=== PATIENT | male | born 1975 | race African-American/Black ===

== ENCOUNTER 2020-05-25 06:50 | Day surgery (SDC) | payer OTHER ==
[2020-05-19 11:09] LABS: BASOPHILS % (AUTO) 0.8 % (0.0-5.0); EOSINOPHILS % (AUTO) 1.9 % (0.0-8.0); HEMATOCRIT 41.4 % (42-54); LYMPHOCYTES % (AUTO) 35.2 % (21.0-51.0); MEAN CORPUSCULAR HEMOGLOBIN 31.2 pg (27.0-33.0); MEAN CORPUSCULAR HGB CONC 34.1 g/dL (32.0-36.0); MEAN CORPUSCULAR VOLUME 91.6 fL (79-99); MONOCYTES % (AUTO) 10.2 % (3.0-13.0); NEUTROPHILS % (AUTO) 51.3 % (40.0-77.0); PLATELET COUNT (AUTO) 248 K/uL (130-400); RED BLOOD CELL COUNT(AUTO) 4.52 MIL/uL (4.50-6.20); RED CELL DISTRIBUTION WIDTH 13.2 % (11.0-15.5); WHITE BLOOD COUNT (AUTO) 10.6 K/uL (4.8-10.8)
[2020-05-19 11:22] LABS: CREATININE 1.6 mg/dL (0.5-1.5); POTASSIUM 3.4 mmol/L (3.5-5.1)
[2020-05-24 15:41] VITALS: BP 140/90
--- NOTE | 2020-05-24 16:19 | NUR ---
POTASSIUM INFORMED DR. GLOVER OF ABNORMAL POTASSIUM. NO ORDERS RECEIVED. PROCEED WITH PLANNED PROCEDURE.
[2020-05-25] VITALS (18 sets, daily range): BP systolic 125–160; BP diastolic 75–103
[~2020-05-25] VITALS: Ht 177.8 cm; Wt 104.1 kg
[~2020-05-25 06:50] MED LIST: AMLO10TA7 PO; LOSA100T58 PO; OMEP20TA25 PO
[2020-05-25] MEDS ORDERED: CEFAZOLIN SODIUM 1 GM VIAL IVP ONE (08:00)
[2020-05-25] MEDS ORDERED: BUPIVACAINE/EPI/PF 0.25% 30ML VIAL IJ ONE (08:49)
[2020-05-25] MEDS ORDERED: ROCURONIUM 10MG/1ML SYR 10 MG/ML ML ONE (08:50)
[2020-05-25] MEDS ORDERED: SUCCINYLCHOLINE CHLORIDE 20 MG/ML 10 ML VIAL ONE (08:50)
[2020-05-25] MEDS ORDERED: PROPOFOL 10 MG/ML 20ML VIAL IV ONE (08:50)
[2020-05-25] MEDS ORDERED: LIDOCAINE PF 2% 5ML ABBOJECT ONE (08:50)
[2020-05-25] MEDS ORDERED: FENTANYL CITRATE PF 50 MCG/1 ML 2ML VIAL ONE (08:51)
[2020-05-25] MEDS: LACTATED RINGERS 1000ML 1,000 ML IV SCH ×2 (09:08→10:15)
[2020-05-25] MEDS ORDERED: ONDANSETRON HCL 4 MG/2 ML VIAL ONE (09:44)
[2020-05-25] MEDS ORDERED: GLYCOPYRROLATE 1 MG/5 ML SYRINGE ONE (09:44)
[2020-05-25] MEDS ORDERED: NEOSTIGMINE 5MG/5ML SYR IV ONE (09:45)
[2020-05-25] MEDS ORDERED: MEPERIDINE-PF 25 MG/ML SYG ONE (09:45)
== END 2020-05-25 12:30 | disposition home or self-care (01) ==
LOC: DAH 06:50
PROVIDERS: ATTEND Orthopaedic Surgery
DX: M65.861 Other synovitis and tenosynovitis, right lower leg (principal); M22.41 Chondromalacia patellae, right knee; I10 Essential (primary) hypertension; K21.9 Gastro-esophageal reflux disease without esophagitis; E66.3 Overweight; F17.200 Nicotine dependence, unspecified, uncomplicated; Z11.59 Encounter for screening for other viral diseases; Z98.890 Other specified postprocedural states; Z79.899 Other long term (current) drug therapy; Z68.30 Body mass index [BMI] 30.0-30.9, adult
CPT/HCPCS: 29875; 36415; 80048; 85025; A4213; A4221; A4222; A4223; A4606; A4649 ×3; A4663; A6223; A6260; C9803; J0330; J0690; J2001; J2175; J2405; J2704; J2710; J3010; J3490 ×2; J7120 ×2; U0003